=== PATIENT | male | born 1950 | race Asian ===

== ENCOUNTER 2020-01-18 21:36 | Emergency (ER) | payer OTHER ==
[~2020-01-18] VITALS: Ht 172.7 cm; Wt 158.8 kg
[2020-01-18 21:56] LABS: PLATELET COUNT 157 K/uL (142-355)
[2020-01-18 22:08] LABS: POTASSIUM 5.6 mmol/L (3.6-5.2)
[2020-01-18 23:55] VITALS: BP 127/61; TEMP 97.7
== END 2020-01-18 23:55 | disposition short-term general hospital (02) ==
LOC: ED 21:36
PROVIDERS: Emergency Medicine
DX: F20.89 Other schizophrenia (principal); N19 Unspecified kidney failure; E87.5 Hyperkalemia; R94.31 Abnormal electrocardiogram [ECG] [EKG]
CPT/HCPCS: 80053; 85027; 93005; 96360; 96372; 99285; J2060